=== PATIENT | male | born 1995 | race Caucasian/White ===

== ENCOUNTER 2020-03-14 13:11 | Emergency (ER) | payer SELFPAY ==
[~2020-03-14] VITALS: Ht 182.9 cm; Wt 103.0 kg
[2020-03-14 15:07] VITALS: BP 132/76
[2020-03-14 15:08] LABS: CHLAMYDIA DNA AMPLIFICATION NEGATIVE (NEGATIVE); GC DNA AMPLIFICATION NEGATIVE (NEGATIVE)
== END 2020-03-14 15:12 | disposition home or self-care (01) ==
LOC: M ED 13:11
DX: Z11.3 Encounter for screening for infections with a predominantly sexual mode of transmission (principal); N52.9 Male erectile dysfunction, unspecified; F17.200 Nicotine dependence, unspecified, uncomplicated; F14.10 Cocaine abuse, uncomplicated